=== PATIENT | male | born 1980 | race Caucasian/White ===

== ENCOUNTER 2022-06-11 12:57 | Outpatient (REF) | payer OTHER, SELFPAY ==
--- NOTE | ~2022-06-11 | XR_ITS ---
EXAMINATION: XR HAND, RIGHT CLINICAL INFORMATION: Right hand injury COMPARISON: None TECHNIQUE: PA, lateral, and oblique views of the right hand. FINDINGS: Comminuted fracture of the fourth metacarpal neck with slight palmar tilt and enhanced dorsal soft tissue swelling. No intra-articular extension. No additional acute fracture or dislocation. Joint spaces throughout the hand and wrist are maintained. XR/XR hand RT 2V IMPRESSION: Comminuted extra-articular fracture of the fourth metacarpal neck with slight palmar tilt/angulation and dorsal soft tissue swelling.
== END 2022-06-11 12:58 | disposition home or self-care (01) ==
LOC: HO.XRAY 12:57
PROVIDERS: PCP Internal Medicine; Visit Provider Nurse Practitioner Family
DX: S69.91XA Unspecified injury of right wrist, hand and finger(s), initial encounter (principal)
CPT/HCPCS: 73120

== ENCOUNTER 2022-06-14 09:15 | Emergency (ER) | payer OTHER, SELFPAY ==
[2022-06-14 10:34] VITALS: BP 144/89; PULSE 62; RESP 18; TEMP 36.4; O2SAT 97; BMI 39.4
--- NOTE | 2022-06-14 12:09 | ED.UPPEXIN ---
HPI - Extremity Injury (Upper) General Chief Complaint: Extremity Problem Stated Complaint: R hand broken Time Seen by Provider: 06/14/22 10:41 Source: patient Mode of arrival: ambulatory Limitations: no limitations History of Present Illness HPI narrative: 42-year-old male presenting to the ER after he was seen at the walk-in clinic at [place] on 06/11/2022 after he had a mechanical fall where he was walking up some metal steps at work while texting and he slipped and landed on his right hand in a fist and since then he has been having pain and swelling that has been progressively getting worse. He was seen on 06/11/2022 had an x-ray and was diagnosed with a comminuted 4th metacarpal fracture was sent here for further evaluation treatment. He reports that he is in from [place]. He denies any head injury, neck injury, back injury, any other extremity injury, paresthesias, weakness, rashes or any other symptoms complaints or concerns at this time. MD complaint: injury to: right and hand Onset (ago): day(s) (3) Other Extremity Injury: right: hand Other injuries: none Place: work Severity: moderate Relieving factors: none Exacerbating factors: movement of extremity and other (Palpation) Context: fall Associated symptoms: denies other symptoms Related Data Previous Rx's Medication Instructions Recorded ibuprofen 800 mg tablet 800 mg PO Q8H PRN pain #14 tabs 06/14/22 oxycodone 5 mg tablet 5 mg PO Q6H PRN pain #14 tabs 06/14/22 Allergies Allergy/AdvReac Type Severity Reaction Status Date / Time No Known Allergies Allergy Verified 06/11/22 12:29 Review of Systems Review of Systems: Constitutional : No Fever, No Chills ENT/Mouth : No Ear Pain, No Hoarseness, No sore throat Eyes: No Eye Pain, No Swelling, No Redness, No Foreign Body Cardiovascular : No Chest Pain, No SOB Respiratory : No Cough, No Dyspnea Gastrointestinal : No Nausea, No Vomiting, No Diarrhea, No abdominal Pain Genitourinary : No Dysuria, No Hematuria Musculoskeletal : + 4th metacarpal joint pain/swelling, No Myalgias Skin : No Skin lacerations, No rash Neuro : No Weakness, No Numbness, No Paresthesias, No Loss of Consciousness, No Dizziness, No Headache Psych : No Anxiety/Panic, No Depression Heme/Lymph: no easy bruising, no Lymphadenopathy Endocrine : No Polyuria, No Polydipsia Yes all other systems are reviewed and are negative [facility] Past Medical History Attestation statement: The following information was validated with the patient. Source: old records reviewed and nursing notes reviewed Social History Social History Advance Directives: Yes Advance Directives Information Provided: Yes Advance Directives on File: No Physical Exam Vital Signs: Vital Signs: Last Vital Signs Temp 97.5 F 06/14/22 10:34 Pulse 62 06/14/22 10:34 Resp 18 06/14/22 10:34 BP 144/89 H 06/14/22 10:34 Pulse Ox 97 06/14/22 10:34 O2 Del Method 06/14/22 10:34 BMI result Body Mass Index 39.4 vital signs have been reviewed as normal and appeared to be correct. Blood pressure 144/89 Heart rate normal. Respiration rate normal. Temperature normal. Oxygen saturation normal. Appearance: Alert. Oriented X3. No acute distress. Head: Normal external exam. Normocephalic. Atraumatic. Eyes: PERRLA. EOMI. Conjunctiva and sclera normal. Eyelids normal. ENT: Pharynx normal. Uvula midline. Moist mucous membranes. Neck: Normal inspection. Neck supple. FROM. CVS: Normal heart rate and rhythm. Respiratory: No respiratory distress. Painless inspiration. Skin: Skin warm and dry. Normal skin color. Normal skin turgor. No rashes/lesions/lacerations noted. Extremities: Patient moderate tenderness palpation to the 4th metacarpal with mild soft tissue swelling. Although he has full range of motion all finger/hand and wrist joint. No obvious ligamentous or tendon injury noted. No extremity edema noted. Otherwise all other extremities exhibit normal range of motion nontender. Neuro: Oriented X 3. No motor deficit. No sensory deficit. Reflexes normal. Normal steady gait. No focal neuro deficits noted. Vascular: + radial pulses/+ 2 distal pedal pulses/+2 dorsalis pedis b/l. Normal cap refill. No cyanosis noted to upper extremity nails and lower extremity toes nails. Course Course Course Narrative: 42-year-old male presenting to the ER after he was seen at the walk-in clinic at [place] on 06/11/2022 after he had a mechanical fall where he was walking up some metal steps at work while texting and he slipped and landed on his right hand in a fist and since then he has been having pain and swelling that has been progressively getting worse. He was seen on 06/11/2022 had an x-ray and was diagnosed with a comminuted 4th metacarpal fracture was sent here for further evaluation treatment. He reports that he is in from [place]. Will most likely follow up in [place] orthopedics. X-ray revealed a common fracture of 4th metacarpal neck of his right hand therefore will place in a ulnar gutter splint. Treat symptomatically and instructed follow-up with orthopedics and to return if any new or worsening symptoms. Patient understands agrees with this plan. MDM - Extremity Injury (Upper) Medical Records Attestation: I reviewed the patient's medical records. Imaging Data Right hand x-ray: Attestation: I personally reviewed and interpreted this imaging study as follows: Radiologist's impression: FINDINGS: Comminuted fracture of the fourth metacarpal neck with slight palmar tilt and enhanced dorsal soft tissue swelling. No intra-articular extension. No additional acute fracture or dislocation. Joint spaces throughout the hand and wrist are maintained.? XR/XR hand RT 2V IMPRESSION: Comminuted extra-articular fracture of the fourth metacarpal neck with slight palmar tilt/angulation and dorsal soft tissue swelling. Procedures Orthopedic Splinting/Casting Injury #1: Side: right Upper Extremity Injury Location: hand Upper Extremity Immobilizer: ulnar gutter Discharge Plan Discharge Clinical Impression: Closed fracture of fourth metacarpal bone, Fall Patient Disposition: Home, Self-Care Instructions: Hand Fracture (ED), Splint Care (ED) Prescriptions: New ibuprofen 800 mg tablet 800 mg PO Q8H PRN (Reason: pain) Qty: 14 0RF oxycodone 5 mg tablet 5 mg PO Q6H PRN (Reason: pain) Qty: 14 0RF Rx Instructions: Partial Fill upon patient request. Referrals: Alex Munguia III, MD [Primary Care Provider] - 1 week Shekhar Rojas MD [Physician] - 1 week (Call to make a follow-up appointment within the next 1-2 weeks) Stand Alone Forms: Work/School Release
== END 2022-06-14 12:24 | disposition home or self-care (01) ==
PROVIDERS: Emergency Provider Emergency Medicine; PCP Internal Medicine
DX: S62.604A Fracture of unspecified phalanx of right ring finger, initial encounter for closed fracture (principal); W10.9XXA Fall (on) (from) unspecified stairs and steps, initial encounter; Y93.9 Activity, unspecified; Y92.9 Unspecified place or not applicable; Y99.0 Civilian activity done for income or pay; Z79.899 Other long term (current) drug therapy
CPT/HCPCS: 29130; 99282; 99284

== ENCOUNTER 2023-01-16 11:52 | Outpatient (REF) | payer OTHER, SELFPAY ==
[2023-01-17 13:02] LABS: Influenza A PCR NEGATIVE (Negative); Influenza B PCR NEGATIVE (Negative); Resp Syncy Virus RNA Qual PCR NEGATIVE (Negative); SARS COV2 PCR INHOUSE NEGATIVE (Negative)
== END 2023-01-16 11:53 | disposition home or self-care (01) ==
LOC: HO.LNP 11:52
PROVIDERS: Visit Provider Nurse Practitioner Family
DX: Z20.822 Contact with and (suspected) exposure to COVID-19 (principal); J20.9 Acute bronchitis, unspecified
CPT/HCPCS: 0241U

== ENCOUNTER 2023-01-16 15:06 | Outpatient (REF) | payer OTHER, SELFPAY ==
--- NOTE | ~2023-01-16 | XR_ITS ---
EXAMINATION: XR CHEST CLINICAL INFORMATION: Acute bronchitis. COMPARISON: None available. TECHNIQUE: 2 views of the chest were obtained. FINDINGS: No significant abnormality is noted involving the heart, lungs, mediastinum, bony thorax or soft tissues. XR/XR chest 2V IMPRESSION: No acute cardiopulmonary process.
== END 2023-01-16 15:07 | disposition home or self-care (01) ==
LOC: HO.XRAY 15:06
PROVIDERS: PCP Internal Medicine; Visit Provider Nurse Practitioner Family
DX: J20.9 Acute bronchitis, unspecified (principal)
CPT/HCPCS: 71046